=== PATIENT | male | born 1950 | race Caucasian/White ===

== ENCOUNTER → 2016-11-29 | Outpatient (CLI) | payer MEDICARE, OTHER ==
[2016-11-29 17:52] LABS: Blood Urea Nitrogen 16 mg/dL (9-20); Cholesterol 118 mg/dL (<200); HDL Cholesterol 39 mg/dL (40-60); Non-African American GFR(MDRD) >60 (>60 ml/min/1.73 sqM); Triglycerides 314 mg/dL (<150)
--- NOTE | 2016-11-30 08:16 | CT ---
EXAMINATION TYPE: CT ChestAbdPelvis w con DATE OF EXAM: 11/29/2016 7:13 PM COMPARISON: CT CAP August 22, 2016. Older CT and PET/CT studies. HISTORY: Follow-up lung cancer. CT DLP: 1951.20 mGycm. Automated Exposure Control for Dose Reduction was Utilized. CONTRAST: CT scan of the thorax, abdomen and pelvis is performed with oral and with IV Contrast, patient inject ed with 100 mL of Omnipaque 300. FINDINGS: LUNGS: There is moderate peribronchial wall thickening in the left lower lobe near area of primary ne oplasm on original PET/CT axial image 36 versus more prominent than prior CT axial image 36. No recur rent nodule or mass is clearly identified. Favor posttreatment change. More focal atelectasis or cons olidation inferior and medial to this on axial image 44 is noted new from prior exam. No new parenchy mal nodule or mass is identified throughout entire lungs. Some faint opacity in left lower lobe is sl ightly more prominent could reflect edema and/or infiltrate. Clinical correlation advised to rule out acute infectious process. There is no pleural effusion or pneumothorax seen. The tracheobronchial tree is patent. MEDIASTINUM: There are no greater than 1 cm hilar or mediastinal lymph nodes. There are stable promin ent but subcentimeter superior mediastinal lymph node adjacent to the esophagus on axial image 11 as well as focal paratracheal/pericarinal lymph node on axial image 24. No cardiomegaly or pericardial e ffusion is seen. Coronary artery calcification is redemonstrated. There is surgical clip on axial im age 5 at area of right supraclavicular adenopathy on PET/CT without recurrent adenopathy clearly seen . OTHER: No additional significant abnormality is seen. LIVER/GB: Dependent small gallstone in gallbladder is redemonstrated on axial image 72. There is subc entimeter low dense lesion near interlobar fissure of the liver on axial image 61 anteriorly that is too small to further characterize but presumed benign and stable from most recent CT. PANCREAS: No significant abnormality is seen. SPLEEN: No significant abnormality is seen. ADRENALS: Slight thickening to both adrenal glands is stable and favors benign hyperplasia. KIDNEYS: A simple appearing 2 cm cyst posteriorly upper pole level left kidney is stable BOWEL: The oral contrast does not reach colonic level. There is no suspicious small or large bowel di latation. There are scattered colonic diverticulosis most pronounced in the left and sigmoid colon. T here is no CT evidence for acute diverticulitis. GENITAL ORGANS: Central zone calcifications are seen in right aspect of prostate gland. LYMPH NODES: No greater than 1cm abdominal or pelvic lymph nodes are appreciated. OSSEOUS STRUCTURES: Osseous structures are demineralized. There is facet arthropathy in the lower lum bar spine. Slight underlying scoliotic curvature is present. OTHER: There is redemonstration of patent aortobiiliac stent graft. [place] abdominal aortic aneurysm measures 7.3 x 7.2 cm on axial image 90 felt stable. There is small fluid collection in the anterior abdominal wall midline on axial image 91 felt stable, presumed postsurgical seroma as is at level of scar. Multiple coils are seen just superior and inferior to this possibly from additional ventral wa ll hernia repair surgery. IMPRESSION: No recurrent mass or adenopathy is definitively seen to suggest neoplastic recurrence. I ncreasing left lower lobe peribronchial wall thickening and groundglass opacity could reflect posttre atment change, acute infectious process is not excluded, clinical correlation advised.
== END | disposition home or self-care (01) ==
LOC: RADCTMAIN 17:01
PROVIDERS: ATTEND Internal Medicine Hematology & Oncology
DX: Z03.89 Encounter for observation for other suspected diseases and conditions ruled out (principal)
CPT/HCPCS: 80061; 82565; 83021; 84520; 71260; 74177; 36415; Q9967

== ENCOUNTER → 2017-03-01 | Outpatient (CLI) | payer MEDICARE, OTHER ==
[2017-03-01 18:13] LABS: Blood Urea Nitrogen 16 mg/dL (9-20); Non-African American GFR(MDRD) >60 (>60 ml/min/1.73 sqM)
--- NOTE | 2017-03-01 20:04 | CT ---
EXAMINATION TYPE: CT ChestAbdPelvis w con DATE OF EXAM: 03/01/2017 COMPARISON: 08/22/2016 HISTORY: Lung cancer CT DLP: 1968.3 mGycm Automated exposure control for dose reduction was used. CONTRAST: CT scan of the chest, abdomen and pelvis is performed with Oral Contrast and with IV Contrast, patien t injected with 100 mL of Omnipaque 300. FINDINGS: The lungs are clear of consolidation. There is no evidence of a pulmonary mass. There is a faint 1.5 cm infiltrate in the anterior right middle lobe. There is no pleural effusion. There is a calcified granuloma the right paratracheal region. There are no hilar masses. There is no pericardial effusion. There is atherosclerotic vascular calcification. There is a 1.5 cm pretracheal lymph node. There is an irregular 1 cm hypodensity in the anterior right lobe of the liver of doubtful significan ce. Bile ducts are not dilated. There is no pancreatic mass. Spleen appears normal. There is a 5 mm c alcified gallstone. There is a 7.5 cm lower abdominal aortic aneurysm. There is aortoiliac stent note d. There is no retroperitoneal adenopathy. There is no adrenal mass. Kidneys show satisfactory contra st opacification. There is a 2 cm cortical cyst on the posterior left kidney. I see no intestinal wall thickening. Bladder distends smoothly. The prostate is enlarged with calcifi cation. Prostate measures 6 x 5 cm. There are numerous sigmoid diverticula. There is no evidence of d iverticulitis. There are spondylotic changes in the thoracic and lumbar spine. There is no compressio n fracture. IMPRESSION: There is a small interstitial infiltrate in the right middle lobe of doubtful significanc e but appears stable. There is a pretracheal lymph node that is slightly smaller than old exam. Stabl e left renal cortical cyst. Sigmoid diverticulosis. Stable 7.5 cm abdominal aortic aneurysm. Enlarged prostate. No evidence of recurrent tumor.
== END | disposition home or self-care (01) ==
LOC: RADCTMAIN 17:21
PROVIDERS: ATTEND Internal Medicine Hematology & Oncology
DX: R91.8 Other nonspecific abnormal finding of lung field (principal); N28.1 Cyst of kidney, acquired; K57.30 Diverticulosis of large intestine without perforation or abscess without bleeding; N40.0 Benign prostatic hyperplasia without lower urinary tract symptoms; I71.4 Abdominal aortic aneurysm, without rupture; C34.32 Malignant neoplasm of lower lobe, left bronchus or lung
CPT/HCPCS: 82565; 84520; 71260; 74177; 36415; Q9967

== ENCOUNTER 2020-06-26 08:47 | Day surgery (SDC) | payer MEDICARE, OTHER ==
[2020-06-25 08:57] VITALS: BMI 33.2
[~2020-06-26 08:47] MED LIST: LACTATED RINGERS 1,000 ML IV SCH; LIDOCAINE 1% (10MG/ML) FOR IV START INTRADERMA PRN
[2020-06-26 09:55] VITALS: TEMP 97.3
[2020-06-26] MEDS ORDERED: PROPOFOL 10 MG/ML 20 ML VIAL IV ONE (09:57)
[2020-06-26 09:59] LABS: Glucose,Whole Blood 98 mg/dL (75-99)
--- NOTE | 2020-06-26 09:59 | P.GSHP ---
History of Present Illness H&P Date: 06/26/20 70-year-old male presents today for screening colonoscopy. Last colonoscopy was apparently 3 years ago. Denies any blood in his stool. Denies any family history of colon cancer. Denies any history of inflammatory bowel disease in the family or personal. Denies any recent fevers, chills, chest pain or shortness of breath. - Review of Systems All systems: negative Past Medical History Past Medical History: Coronary Artery Disease (CAD), Cancer, Diabetes Mellitus, Hearing Disorder / Deafness, Hyperlipidemia, Osteoarthritis (OA), Prostate Disorder, Sleep Apnea/CPAP/BIPAP Additional Past Medical History / Comment(s): Hx Gout, Skin Cancer, LLL lung Cancer; Prostate cancer 2019. DM during chemotherapy, no tx. Uses cpap. History of Any Multi-Drug Resistant Organisms: None Reported Past Surgical History: Bowel Resection, Heart Catheterization, Hernia Repair, Orthopedic Surgery, Tonsillectomy Additional Past Surgical History / Comment(s): Bowel Surgery age 21 d/t rupture. Left Knee X2, Hiatal Hernia. Hemorroidectomy, Hernia Repairs x3 w/ mesh. Basal Skin cancer exc lesions, STENT TO LOWER ABDOMINAL AORTA AT [facility]. Past Anesthesia/Blood Transfusion Reactions: No Reported Reaction Date of Last Stent Placement:: 09/2015 Smoking Status: Former smoker - Past Family History Mother Family Medical History: No Reported History Medications and Allergies Home Medications Medication Instructions Recorded Confirmed Type ALPRAZolam [Xanax] 0.5 mg PO DAILY PRN 09/30/15 06/26/20 History Acetaminophen [Tylenol] 500 mg PO Q4H PRN 09/30/15 06/26/20 History Aspirin 81 mg PO DAILY 09/30/15 06/26/20 History Buprenorphine [Butrans 20 MCG/HOUR] 1 each TRANSDERM FR 09/30/15 06/26/20 History Febuxostat [Uloric] 40 mg PO DAILY 09/30/15 06/26/20 History Lansoprazole [Prevacid] 30 mg PO HS 09/30/15 06/26/20 History Multivit-Min/FA/Lycopen/Lutein 1 each PO DAILY 09/30/15 06/26/20 History [Centrum Silver Tablet] Rosuvastatin Calcium [Crestor] 10 mg PO DAILY 09/30/15 06/26/20 History Tadalafil [Cialis] 5 mg PO DAILY 10/14/15 06/26/20 History Fenofibrate [Lofibra] 54 mg PO DAILY 06/25/20 06/26/20 History dilTIAZem HCL [Tiadylt ER] 180 mg PO DAILY 06/25/20 06/26/20 History Allergies Allergy/AdvReac Type Severity Reaction Status Date / Time No Known Allergies Allergy Verified 06/26/20 09:39 Surgical - Exam Osteopathic Statement: *. No significant issues noted on an osteopathic structural exam other than those noted in the History and Physical/Consult. Vital Signs Temp Pulse Resp BP Pulse Ox 97.3 F L 93 18 134/68 98 06/26/20 09:36 06/26/20 09:36 06/26/20 09:36 06/26/20 09:36 06/26/20 09:36 - General well developed, well nourished - Eyes PERRL - Neck trachea midline - Respiratory normal respiratory effort - Abdomen Soft, nontender, nondistended, no rebound, no guarding - Psychiatric oriented to time, oriented to person, oriented to place Assessment and Plan Plan: 70-year-old male presents for screening colonoscopy. Risks, benefits and alternatives were provided to the patient. Consent was provided. Further recommendations after procedure.
[2020-06-26 11:33] VITALS: BP 132/85; PULSE 68; RESP 18
--- NOTE | 2020-06-26 12:14 | P.PCN ---
Date of Procedure: 06/26/20 Preoperative Diagnosis: Screening colonoscopy, history of polyps Postoperative Diagnosis: Multiple large polyps throughout the colon, greater than 15 Procedure(s) Performed: Colonoscopy with hot snare polypectomy and tattoo application Surgeon: Janine Em Pathology: other (Ascending colon polyp, hepatic flexure polyp, transverse colon polyp, descending colon polyps, rectal polyps) Condition: stable Disposition: same day Indications for Procedure: 70-year-old male presents for a elective colonoscopy for screening purposes. He states his last endoscopy was approximately 3 years ago. He did state prior to the procedure that at that previous colonoscopy, a large polyp was noted in his colon that was not able to be removed completely. He states he has not followed up since that time. He denies any blood in his stool. Denies any family history of colon cancer. Risks, benefits and alternatives were provided to the patient. He did provide consent prior to attending the endoscopy suite. Operative Findings: Multiple large polyps throughout the colon. Multiple polyps were seen in the d escending colon, hepatic flexure. The hepatic flexure was noted to have an old tattoo spot at the site of the large polyp. Additional large polyps noted in the transverse colon, descending colon, sigmoid colon and rectum. Description of Procedure: The patient was brought into the endoscopy suite and placed in left lateral decubitus position and adequate sedation was achieved using conscious sedation. A digital rectal exam was performed and mild internal hemorrhoids were palpated. An endoscope was then placed in the rectum and advanced to the cecum as identified by name Robin including the appendiceal orifice and the ileocecal valve. The prep was good. The cecum was noted not to have any significant pathology. The descending colon was noted to have 3 large polyps. One of which was able to be removed in its entirety. The other polyps were attempted to be removed and both had piecemeal pieces removed, however were not able to be removed in its entirety due to size. The hepatic flexure was examined and noted to have an old tattoo, likely from previous scope. At this site of tattoo there was a flat sessile large polyp. This was also attempted to be removed piecemeal with hot snare polypectomy and approximately 50% of it was removed. This was not able to be removed in its entirety. The descending colon was also noted to have a significant amount of large polyps. Specifically at the 50 cm raul was the largest of the polyps that was attempted to be removed piecemeal. This polyp was not able to be removed in its entirety. Additional descending colon polyps were able to be removed. Additional polyp was noted in the sigmoid colon and this was removed with hot snare polypectomy. Rectal polyps were also noted and removed with hot snare polypectomy. Excess air was removed, the colonoscope withdrawn and procedure terminated. The patient was then transferred to the recovery unit in stable condition. Patient is to follow-up as an outpatient to discuss pathology findings and next absent care. Due to the significant amount of polyps and large size, we will await pathology and provide further recommendations regarding surgery versus future colonoscopy.
== END 2020-06-26 11:45 | disposition home or self-care (01) ==
LOC: ORWHC2ENDO 08:47
PROVIDERS: ATTEND Surgery
DX: Z12.11 Encounter for screening for malignant neoplasm of colon (principal); D12.4 Benign neoplasm of descending colon; D12.2 Benign neoplasm of ascending colon; D12.3 Benign neoplasm of transverse colon; D12.5 Benign neoplasm of sigmoid colon; Z86.010 Personal history of colon polyps; K64.8 Other hemorrhoids; I25.10 Atherosclerotic heart disease of native coronary artery without angina pectoris; E11.9 Type 2 diabetes mellitus without complications; H91.90 Unspecified hearing loss, unspecified ear; E78.5 Hyperlipidemia, unspecified; M10.9 Gout, unspecified; F32.9 Major depressive disorder, single episode, unspecified; M19.90 Unspecified osteoarthritis, unspecified site; N42.9 Disorder of prostate, unspecified; G47.33 Obstructive sleep apnea (adult) (pediatric); Z99.89 Dependence on other enabling machines and devices; Z85.118 Personal history of other malignant neoplasm of bronchus and lung; Z92.21 Personal history of antineoplastic chemotherapy; Z90.49 Acquired absence of other specified parts of digestive tract; Z85.828 Personal history of other malignant neoplasm of skin; Z98.890 Other specified postprocedural states; Z87.891 Personal history of nicotine dependence; Z85.46 Personal history of malignant neoplasm of prostate; Z79.82 Long term (current) use of aspirin; Z79.899 Other long term (current) drug therapy
CPT/HCPCS: 88305; 45385; 45381; J2704; 44404

== ENCOUNTER → 2024-04-23 | Outpatient (CLI) | payer MEDICARE, OTHER | END | disposition home or self-care (01) | LOC: LABPRL 16:35 | PROVIDERS: ATTEND Family Medicine | DX: I10 Essential (primary) hypertension (principal); E78.5 Hyperlipidemia, unspecified; E11.9 Type 2 diabetes mellitus without complications | CPT/HCPCS: 80053; 80061; 83036 ==